=== PATIENT | male | born 1960 | race Caucasian/White ===

== ENCOUNTER 2020-11-25 09:06 | Outpatient (CLI) | payer BC, SELFPAY ==
--- NOTE | ~2020-11-25 | XR_ITS ---
EXAMINATION: XR abdomen/kub 1V INDICATION: Calculus of the ureter TECHNIQUE: Supine views of the abdomen were obtained on 2 radiographs. COMPARISON: CT, 08/10/2015 FINDINGS: No urolithiasis is identified. There are phleboliths of the left pelvis. The visualized brian g bases are clear. The bowel gas pattern is normal. IMPRESSION: 1. No urolithiasis identified. Reviewed, dictated and finalized at location B.
== END 2020-11-25 09:07 | disposition home or self-care (01) ==
LOC: ANHIMG 09:13
PROVIDERS: PCP Family Medicine; Visit Provider Urology
DX: N20.1 Calculus of ureter (principal)
CPT/HCPCS: 74018

== ENCOUNTER 2020-12-02 08:33 | Outpatient (CLI) | payer BC, SELFPAY ==
--- NOTE | ~2020-12-02 | CT_ITS ---
EXAMINATION: CT abdomen pelvis wo con DATE: 12/02/2020 08:54 INDICATION: Ureteral calculus TECHNIQUE: Computed tomography (CT) of the abdomen and pelvis was performed without intravenous contr ast. Automated exposure control and iterative reconstruction technique were employed. Exam dose: 303 .26 mGy-cm total exam DLP. COMPARISON: 11/25/2020 KUB 08/10/2015 CT abdomen pelvis FINDINGS: The lung bases are clear. Normal heart size. No pericardial or pleural effusion. The liver, gallbladder, bile ducts, spleen, pancreas and pancreatic duct are unremarkable. Normal mor phology of the adrenal glands. There are couple of approximately 1 cm lower pole left renal probable cyst. Approximately 3.5 mm lower pole nonobstructing right renal calculus. Pinpoint nonobstructing lower pole left renal calculus. 5 mm left ureterovesical junction calculus, without associated hydroureteronephrosis. The urinary lena dder is unremarkable. Normal caliber of the abdominal aorta. No intraperitoneal or retroperitoneal or pelvic mass lesion or lymphadenopathy. No ascites. Moderate enlargement of the prostate gland. The urinary bladder is unremarkable. Normal appendix. Diverticulosis of the colon; no CT evidence of diverticulitis. No bowel obstruction, bowel wall thick ening, pneumatosis or intraperitoneal free air. Severe degenerative disc disease at L5-S1. Mild to moderate degenerative disc disease at the remainin g lumbar interspaces. Diffuse idiopathic skeletal hyperostosis of the lower thoracic spine. No suspicious osteolytic or osteoblastic lesions are noted. IMPRESSION: 5 mm left ureterovesical junction calculus without associated hydroureteronephrosis Nonobstructing calculus of each kidney 1 cm lower pole left renal cysts Mild colonic diverticulosis Reviewed, dictated and finalized at [facility]. Reviewed, dictated and finalized at location A. IMPRESSION: 5 mm left ureterovesical junction calculus without associated hydr oureteronephrosis Nonobstructing calculus of each kidney 1 cm lower pole left renal cysts Mild colonic diverticulosis
== END 2020-12-02 08:34 | disposition home or self-care (01) ==
PROVIDERS: PCP Family Medicine; Visit Provider Urology
DX: N20.1 Calculus of ureter (principal); N20.0 Calculus of kidney; N28.1 Cyst of kidney, acquired; K57.90 Diverticulosis of intestine, part unspecified, without perforation or abscess without bleeding
CPT/HCPCS: 74176